=== PATIENT | male | born 1975 | race Two or more races ===

== ENCOUNTER 2017-11-26 23:20 | Emergency (ER) | payer BC ==
[2017-11-27] MEDS ORDERED: LIDOCAINE WITH 8.4% SOD BICARB 3 ML DISP.SYRIN. IJ (00:48)
[2017-11-27] MEDS: LIDOCAINE WITH 8.4% SOD BICARB 3 ML DISP.SYRIN. IJ (01:00)
[2017-11-27] MEDS: LIDOCAINE 1%/EPI 1:100,000 20 ML VIAL. INJ (01:00)
[2017-11-27] MEDS: DIPHTH,PERTUSS(ACELL),TET TOX 0.5 ML DISP.SYRIN. VAX IM (01:40)
== END 2017-11-27 01:45 | disposition home or self-care (01) ==
LOC: ER 11-27 01:45
DX: S09.90XA Unspecified injury of head, initial encounter (principal); S01.112A Laceration without foreign body of left eyelid and periocular area, initial encounter; F10.10 Alcohol abuse, uncomplicated; W10.8XXA Fall (on) (from) other stairs and steps, initial encounter; Y93.89 Activity, other specified; Y99.8 Other external cause status; Y92.89 Other specified places as the place of occurrence of the external cause
CPT/HCPCS: 12013; 70450; 70486; 72125; 90471; 90715; 99284-25